=== PATIENT | male | born 1975 | race Caucasian/White ===

== ENCOUNTER → 2020-10-29 11:19 | Outpatient (CLI) | payer BC, SELFPAY ==
--- NOTE | ~2020-10-29 | XR_ITS ---
EXAMINATION: XR chest 2V DATE: 10/29/2020 11:36 INDICATION: Cough. Shortness of breath. Prior COVID positive. TECHNIQUE: frontal and lateral views of the chest were obtained. COMPARISON: None FINDINGS: Diffuse patchy airspace opacities throughout both lungs. No pleural effusion or pneumothorax. The car diomediastinal silhouette is normal. IMPRESSION: 1. Diffuse bilateral lung disease with appearance consistent with COVID pneumonia. Differential inclu cesar less likely pulmonary edema. Reviewed, dictated and finalized at location A. IMPRESSION: 1. Diffuse bilateral lung disease with appearance consistent with COVID pneumon ia. Differential includes less likely pulmonary edema.
== END ==
PROVIDERS: PCP Family Medicine; Visit Provider Nurse Practitioner Family
DX: R05 Cough (principal); B94.8 Sequelae of other specified infectious and parasitic diseases; R91.8 Other nonspecific abnormal finding of lung field
CPT/HCPCS: 71046

== ENCOUNTER → 2020-12-03 14:02 | Outpatient (CLI) | payer BC, SELFPAY ==
--- NOTE | ~2020-12-03 | XR_ITS ---
XR chest 2V 12/03/2020 14:25 Indication: Shortness of breath. Covid. Procedure: 2 view chest Comparison: 10/29/2020 Findings: Significant improvement of patchy bilateral airspace disease, compatible with resolving pne umonia. No significant effusion or pneumothorax. Heart size normal. Impression: 1: Significant interval improvement of patchy bilateral pneumonia. Reviewed, dictated and finalized at location A. Impression: 1: Significant interval improvement of patchy bilateral pneumonia.
== END ==
PROVIDERS: PCP Family Medicine; Visit Provider Nurse Practitioner Family
DX: U07.1 COVID-19 (principal); J12.82 Pneumonia due to coronavirus disease 2019; R91.8 Other nonspecific abnormal finding of lung field
CPT/HCPCS: 71046